=== PATIENT | male | born 1985 | race Caucasian/White ===

== ENCOUNTER 2022-02-11 10:16 | Inpatient (IN) ==
[2022-02-11] MEDS ORDERED: ONDANSETRON 4 MG/2 ML VIAL IV STA (10:51)
[2022-02-11] MEDS ORDERED: SODIUM CHLORIDE 0.9% 1,000 ML IV STA ×2 (10:51→11:56)
[2022-02-11] MEDS ORDERED: HYDROmorphone 1 MG/1 ML SYRINGE IV STA (10:52)
[2022-02-11 10:59] LABS: Basophils % 0.3 % (0.0-0.8); Eosinophils % 0.1 % (0.00-10.9); Hematocrit 40.6 VOL% (42.0-52.0); Hemoglobin 13.3 GM/DL (14.0-18.0); Immature Granulocytes % 0.4 %; Immature Granulocytes Absolute 0.05 #; Lymphocytes # 0.6 10*3/uL (1.4-4.0); Lymphocytes % 5.1 % (21.2-54.2); Mean Corpuscular HGB Conc 32.8 GM/DL (32-36); Mean Corpuscular Volume 82.4 FL (87-102); Mean Platelet Volume 10.1 FL (9.6-12.0); Monocytes # 0.4 10*3/uL (0.11-0.8); Monocytes % 3.6 % (1.7-12.7); Neutrophils % 90.5 % (38.7-73.9); Platelet Count 271 T/CUMM (130-400); Red Blood Count 4.93 MC/CUMM (3.8-5.5); Red Cell Distribution Width 13.3 % (9.3-17.3); White Blood Count 11.8 T/CUMM (4-12)
[2022-02-11 11:18] LABS: RBC,Urine 39 /HPF (0-4); Urine Color Light Yellow (Yellow)
[2022-02-11 11:19] LABS: Bilirubin,Urine Negative (Negative); Blood, Urine Moderate mg/dL (Negative); Glucose,Urine (UA) Negative (Negative); Ketones,Urine Negative (Negative); Nitrite,Urine Negative (Negative); Protein,Urine 30 mg/dL (Negative); Urine Appearance Slightly Cloudy (Clear); Urine Specific Gravity 1.015 (1.001-1.035); Urine Urobilinogen 0.2 eU/dL (<2.0)
[2022-02-11 11:20] LABS: Albumin 3.5 G/DL (3.4-5.0); Bilirubin,Total 0.9 MG/DL (0.20-1.00); Calcium 9.2 MG/DL (8.5-10.1); Osmolality,Calculated 273.8 MOS/KG (273-304); Potassium 3.5 MMOL/L (3.5-5.1); Total Protein 7.8 G/DL (6.4-8.2)
[2022-02-11] MEDS ORDERED: cefTRIAXone 1,000 MG in SODIUM CHLORIDE 0.9% 100 ML IV STA (11:49)
[2022-02-11] MEDS: KETOROLAC 30 MG/1 ML VIAL IV STA ×2 (11:50→12:00)
[2022-02-11] MEDS ORDERED: GLUCAGON 1 MG VIAL IM PRN (12:15)
[2022-02-11] MEDS ORDERED: DEXTROSE 10% 250 ML BAG IV PRN (12:26)
[2022-02-11] MEDS ORDERED: BISACODYL 5 MG TABLET PO ONE (13:11)
[2022-02-11] MEDS: LEVOFLOXACIN INJ 750 MG/150 ML PREMIX IV SCH (13:31)
[2022-02-11] MEDS: ENOXAPARIN 40 MG/0.4 ML SYRINGE SUBCUT SCH (13:31)
[2022-02-11] MEDS: SODIUM CHLORIDE 0.9% 1,000 ML IV SCH ×2 (13:37→20:43)
[2022-02-11] MEDS: DOCUSATE SODIUM 100 MG CAPSULE PO SCH ×2 (15:35→20:46)
[2022-02-11] MEDS: MORPHINE 2 MG/1 ML SYRINGE IV PRN ×2 (16:04→20:43)
[2022-02-11] MEDS: ONDANSETRON 4 MG/2 ML VIAL IV PRN (16:04)
[2022-02-12] MEDS: SODIUM CHLORIDE 0.9% 1,000 ML IV SCH ×3 (00:45→11:41)
[2022-02-12 04:54] LABS: Basophils # 0.1 10*3/uL (0.0-0.2); Basophils % 0.5 % (0.0-0.8); Eosinophils # 0.1 10*3/uL (0.0-0.87); Eosinophils % 0.8 % (0.00-10.9); Hematocrit 36.5 VOL% (42.0-52.0); Hemoglobin 11.6 GM/DL (14.0-18.0); Immature Granulocytes % 0.4 %; Immature Granulocytes Absolute 0.05 #; Lymphocytes # 2.1 10*3/uL (1.4-4.0); Mean Corpuscular HGB Conc 31.8 GM/DL (32-36); Mean Corpuscular Volume 84.5 FL (87-102); Mean Platelet Volume 10.5 FL (9.6-12.0); Monocytes % 7.6 % (1.7-12.7); Neutrophils % 74.7 % (38.7-73.9); Platelet Count 241 T/CUMM (130-400); Red Blood Count 4.32 MC/CUMM (3.8-5.5); Red Cell Distribution Width 13.3 % (9.3-17.3)
[2022-02-12 05:18] LABS: Alanine Aminotransferase 29 U/L (16-61); Albumin 2.5 G/DL (3.4-5.0); Alkaline Phosphatase 98 U/L (45-117); Aspartate Amino Transferase 16 U/L (0-37); Bilirubin,Total < 0.39 MG/DL (0.20-1.00); Blood Urea Nitrogen 16 MG/DL (7-18); Carbon Dioxide 23 MMOL/L (21-32); Chloride 112 MMOL/L (98-107); Estimated Glom Filtration Rate 109 ML/MIN; Glucose 106 MG/DL (74-106); Osmolality,Calculated 281.3 MOS/KG (273-304); Potassium 3.5 MMOL/L (3.5-5.1); Sodium 141 MMOL/L (136-145); Total Protein 5.9 G/DL (6.4-8.2)
[2022-02-12] MEDS: LEVOTHYROXINE 88 MCG TABLET PO SCH (05:54)
[2022-02-12] MEDS: DOCUSATE SODIUM 100 MG CAPSULE PO SCH ×2 (08:23→21:02)
[2022-02-12] MEDS: PANTOPRAZOLE 40 MG TABLET PO SCH (08:23)
[2022-02-12] MEDS: TAMSULOSIN 0.4 MG CAPSULE PO SCH (08:23)
[2022-02-12] MEDS: PHENAZOPYRIDINE 95 MG TABLET PO SCH ×3 (08:23→16:55)
[2022-02-12] MEDS: FLUoxetine 20 MG CAPSULE PO SCH (08:23)
[2022-02-12] MEDS ORDERED: ACETAMINOPHEN 325 MG TABLET PO PRN (10:23)
[2022-02-12] MEDS: cefTRIAXone 1,000 MG in SODIUM CHLORIDE 0.9% 100 ML IV SCH (11:40)
[2022-02-12] MEDS: LEVOFLOXACIN INJ 750 MG/150 ML PREMIX IV SCH (13:05)
[2022-02-12] MEDS: LACTATED RINGERS 1,000 ML IV SCH ×2 (15:41→23:14)
[2022-02-12] MEDS: HYDROmorphone 1 MG/1 ML SYRINGE IV PRN ×2 (16:55→21:08)
[2022-02-12] MEDS: ONDANSETRON 4 MG/2 ML VIAL IV PRN (17:46)
[2022-02-12] MEDS: ENOXAPARIN 40 MG/0.4 ML SYRINGE SUBCUT SCH (21:02)
[2022-02-13 05:25] LABS: Basophils # 0.1 10*3/uL (0.0-0.2); Basophils % 0.6 % (0.0-0.8); Eosinophils # 0.2 10*3/uL (0.0-0.87); Eosinophils % 2.1 % (0.00-10.9); Hematocrit 36.3 VOL% (42.0-52.0); Hemoglobin 11.8 GM/DL (14.0-18.0); Immature Granulocytes % 0.6 %; Immature Granulocytes Absolute 0.05 #; Lymphocytes # 1.4 10*3/uL (1.4-4.0); Lymphocytes % 15.6 % (21.2-54.2); Mean Corpuscular HGB Conc 32.5 GM/DL (32-36); Mean Corpuscular Volume 83.8 FL (87-102); Mean Platelet Volume 10.8 FL (9.6-12.0); Monocytes # 0.8 10*3/uL (0.11-0.8); Monocytes % 8.9 % (1.7-12.7); Neutrophils % 72.2 % (38.7-73.9); Platelet Count 233 T/CUMM (130-400); Red Blood Count 4.33 MC/CUMM (3.8-5.5); Red Cell Distribution Width 13.2 % (9.3-17.3)
[2022-02-13 05:45] LABS: Alanine Aminotransferase 28 U/L (16-61); Albumin 2.7 G/DL (3.4-5.0); Alkaline Phosphatase 97 U/L (45-117); Aspartate Amino Transferase 16 U/L (0-37); Bilirubin,Total < 0.39 MG/DL (0.20-1.00); Blood Urea Nitrogen 11 MG/DL (7-18); Carbon Dioxide 26 MMOL/L (21-32); Chloride 108 MMOL/L (98-107); Estimated Glom Filtration Rate 109 ML/MIN; Glucose 99 MG/DL (74-106); Osmolality,Calculated 277.4 MOS/KG (273-304); Potassium 3.6 MMOL/L (3.5-5.1); Sodium 140 MMOL/L (136-145); Total Protein 6.5 G/DL (6.4-8.2)
[2022-02-13] MEDS: LEVOTHYROXINE 88 MCG TABLET PO SCH (05:57)
[2022-02-13] MEDS: LACTATED RINGERS 1,000 ML IV SCH ×4 (06:30→22:05)
[2022-02-13] MEDS: amLODIPine 5 MG TABLET PO SCH (09:14)
[2022-02-13] MEDS: PHENAZOPYRIDINE 95 MG TABLET PO SCH ×3 (09:14→17:33)
[2022-02-13] MEDS: FLUoxetine 20 MG CAPSULE PO SCH (09:15)
[2022-02-13] MEDS: PANTOPRAZOLE 40 MG TABLET PO SCH (09:15)
[2022-02-13] MEDS: TAMSULOSIN 0.4 MG CAPSULE PO SCH (09:15)
[2022-02-13] MEDS: DOCUSATE SODIUM 100 MG CAPSULE PO SCH ×2 (09:15→20:35)
[2022-02-13] MEDS: HYDROmorphone 1 MG/1 ML SYRINGE IV PRN (10:04)
[2022-02-13] MEDS: ONDANSETRON 4 MG/2 ML VIAL IV PRN ×3 (11:22→22:05)
[2022-02-13] MEDS: cefTRIAXone 1,000 MG in SODIUM CHLORIDE 0.9% 100 ML IV SCH (11:55)
[2022-02-13] MEDS: LEVOFLOXACIN INJ 750 MG/150 ML PREMIX IV SCH (13:57)
[2022-02-13] MEDS: LOSARTAN 50 MG TABLET PO SCH (17:33)
[2022-02-13] MEDS: FLUTICASONE 50 MCG NASAL SPRAY 16 GM BOTTLE BOTH NARES SCH (20:35)
[2022-02-13] MEDS: ENOXAPARIN 40 MG/0.4 ML SYRINGE SUBCUT SCH (20:37)
[2022-02-14] MEDS: LACTATED RINGERS 1,000 ML IV SCH (06:04)
[2022-02-14] MEDS: LEVOTHYROXINE 88 MCG TABLET PO SCH (06:04)
[2022-02-14 06:12] LABS: Basophils % 0.5 % (0.0-0.8); Eosinophils # 0.2 10*3/uL (0.0-0.87); Hematocrit 37.5 VOL% (42.0-52.0); Hemoglobin 12.2 GM/DL (14.0-18.0); Immature Granulocytes % 1.1 %; Immature Granulocytes Absolute 0.06 #; Lymphocytes # 1.4 10*3/uL (1.4-4.0); Lymphocytes % 25.8 % (21.2-54.2); Mean Corpuscular HGB Conc 32.5 GM/DL (32-36); Mean Corpuscular Volume 83.5 FL (87-102); Mean Platelet Volume 10.8 FL (9.6-12.0); Monocytes # 0.8 10*3/uL (0.11-0.8); Monocytes % 13.7 % (1.7-12.7); Neutrophils % 54.9 % (38.7-73.9); Platelet Count 245 T/CUMM (130-400); Red Blood Count 4.49 MC/CUMM (3.8-5.5); Red Cell Distribution Width 13.2 % (9.3-17.3); White Blood Count 5.5 T/CUMM (4-12)
[2022-02-14 06:33] LABS: Alanine Aminotransferase 26 U/L (16-61); Albumin 2.6 G/DL (3.4-5.0); Alkaline Phosphatase 96 U/L (45-117); Aspartate Amino Transferase 14 U/L (0-37); Bilirubin,Total < 0.39 MG/DL (0.20-1.00); Blood Urea Nitrogen 11 MG/DL (7-18); Calcium 9.2 MG/DL (8.5-10.1); Carbon Dioxide 27 MMOL/L (21-32); Chloride 106 MMOL/L (98-107); Estimated Glom Filtration Rate 111 ML/MIN; Glucose 115 MG/DL (74-106); Osmolality,Calculated 278.4 MOS/KG (273-304); Potassium 3.2 MMOL/L (3.5-5.1); Sodium 140 MMOL/L (136-145); Total Protein 6.7 G/DL (6.4-8.2)
[2022-02-14 07:32] VITALS: BP 130/88
[2022-02-14] MEDS ORDERED: POTASSIUM CHLORIDE 20 MEQ TABLET PO ONE (08:00)
[2022-02-14] MEDS: FLUoxetine 20 MG CAPSULE PO SCH (08:41)
[2022-02-14] MEDS: amLODIPine 5 MG TABLET PO SCH (08:41)
[2022-02-14] MEDS: TAMSULOSIN 0.4 MG CAPSULE PO SCH (08:41)
[2022-02-14] MEDS: PANTOPRAZOLE 40 MG TABLET PO SCH (08:41)
[2022-02-14] MEDS: DOCUSATE SODIUM 100 MG CAPSULE PO SCH (08:41)
[2022-02-14] MEDS: LOSARTAN 50 MG TABLET PO SCH (08:41)
[2022-02-14] MEDS: PHENAZOPYRIDINE 95 MG TABLET PO SCH (08:42)
[2022-02-14] MEDS: FLUTICASONE 50 MCG NASAL SPRAY 16 GM BOTTLE BOTH NARES SCH (08:44)
[2022-02-14] MEDS ORDERED: MULTIVITAMIN (CENTRUM) TABLET PO SCH (09:00)
[2022-02-14] MEDS ORDERED: LEVOFLOXACIN 750 MG TABLET PO SCH (09:00)
== END 2022-02-14 12:51 | disposition home or self-care (01) | DRG 690 ==
LOC: N.ED 10:16 → SUATTDRO 12:15 → N.EDINP 12:15 → N.5E 19:58
PROVIDERS: ADMIT Family Medicine; ATTEND Hospitalist